=== PATIENT | female | born 1970 | race Caucasian/White ===

== ENCOUNTER 2025-06-07 09:22 | Outpatient (AMB) | payer BC, SELFPAY ==
--- OUTSIDE RECORDS SUMMARY | 2021-07-16 06:44 | XMS_ITS | Continuity of Care Document ---
Author Organization [facility] Address [address] [place] [address] Phone Care Team Providers Care Serology Technician Name Role Phone Cheryl BARAHONA, Vega Unavailable Unavailable Allergies, Adverse Reactions, Alerts Substance Reaction Status Criticality No Known Allergies Active No Inform ation Medications Medication Instructions Dosage Effective Dates (start - stop) Status Comments WARFARIN SODIUM (unknown strength) Not Available - Active ZOLPIMIST (unknown strength) Not Available - Active LEVOTHYROXINE SODIUM (unknown strength) Not Available - Active Procedures Procedure Date Office/Oupt E&M New Pt 45 Mins Duplex Scan-extrem Veins; Uni/ Advance Directives Directive Yes / No Effective Date File Name No Information Encounters Encounter Description Practice Location Reason(s) For Visit Diagnoses Date Provider Providers Copied on Encounter [facility], [address], [place], [place], [id number], [place] tel:[phone] [facility] No Information Cheryl Ferrari. [address], [facility] [address], [place], [address], [place]. tel:[phone] Referring Provider: Aleida Beck, [address], [place], [address]. tel:[phone] Office/Oupt E&M New Pt 45 Mins [facility], [address] [address], [place], [place], [id number], tel:[phone] - [facility] Body mass index (BMI) 31.0-31.9, adultVenous insufficiency (chronic) (peripheral)Sp ider Veins - (Telangiectasi a) Sep- 1 Neetu Ortiz. [address], [place], [facility], . tel:[phone] Referring Provider: Aleida Beck, [address] [place] [address], [facility]. tel:[phone] [facility], [address] [place] [address], [id number], tel:[phone] [facility] Encntr for f/u exam aft trtmt for cond oth than malig neoplmVaricose veins of left lower extremities with pain Jun- 1 Neetu Ortiz. [address], [place], [place], [facility], . tel:[phone] Referring Provider: Aleida Beck, [address] [place] [address], [facility]. tel:[phone] Family History Family Member Type Diagnosis Age At Onset No Information Payers Payer name Insurance type Covered republican ID Authoriza tion(s) No Information Social History Type Description Quantity Date Captured Comments Sex Female Smoking Status No Information Chief Complaint And Reason For Visit No Information Reason For Referral Reason For Referral No Information Plan Of Treatment Date Type Action Status Goal Diet education completed Referral Ordered: Duplex Scan-extrem Veins; Uni/ Left leg ordered History Of Present Illness Encounter Date Complaint History Of Prese nt Illness No Information Functional Status Date Functional Assessmen t No Information Instructions Date Instruction Additional Infor mation Giving Encouragement to Exercise Related to Body mass index [BMI] 31.0-31.9, adult Diet education Related to Body mass index [BMI] 31.0-31.9, adult Patient education booklet given Related to Venous Insufficiency (Chronic / Peripheral) Pre and post instruc tions reviewed and provided Related to Venous Insufficiency (Chronic / Peripheral) Assessments Type Assessment Date No Information Patient Care Teams Name Effective Dates (start - stop) Status Members No Information
--- NOTE | 2025-06-07 09:24 | MHC.OFFVIS ---
Vital Signs 06/07/25 09:29 Height 5 ft 5 in Weight 204 lb 9.423 oz BMI 34.0 BP 130/80 Blood Pressure Location Rt brachial Position Sitting Pulse 79 Pulse Source Pulse Oximeter Pulse Oximetry (%) 99 Oxygen Delivery Method Room Air Intake Visit Reasons: Arthralgia Intake Note: Patient presents today for Arthralgia follow up. Accompanied by: Self / Same As Patient Allergies amoxicillin Allergy (Mild, Verified 06/07/25 09:21) Hives azithromycin Allergy (Mild, Verified 06/07/25 09:33) stomach pain erythromycin base Allergy (Mild, Verified 06/07/25 09:33) stomach pain Penicillins Allergy (Mild, Verified 06/07/25 09:33) Rash sulfalene Allergy (Mild, Verified 06/07/25 09:33) stomach pain vancomycin Allergy (Mild, Verified 06/07/25 09:33) Hives almonds Adverse Reaction (Severe, Uncoded 06/07/25 09:21) throat swelling HPI HPI Arthralgia: Details: Right ankle pain started yesterday. Denies incident leading to ankle pain. This past Wednesday and Wednesday she hiked for a few miles with uneven ground. She was [place] at [place] near [facility]. This morning she continues to have ankle pain but it is tolerable. She has not self medicated. She Stretched her ankles in the morning. Denies fevers, dyspnea, pleurisy, oral ulcers, rash, active Raynaud's phenomenon, urinary symptoms, or joint swelling. Denies any new issues in regards to her heart or heart valves. She we will be following up with marble machine tender for follow up echocardiogram. 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 Psoriasis De Quervain's tenosynovitis, right Raynauds syndrome Plantar fasciitis Localized, primary osteoarthritis of ankle or foot FANY positive Disorder of connective tissue Arthralgia of knee Arthralgia of ankle or foot, left Surgical History History of open heart surgery H/O thyroidectomy History of oral surgery H/O abdominal surgery Physical Exam Vital Signs: Last Vital Signs Pulse 79 06/07/25 09:29 BP 130/80 09/04/25 09:29 Pulse Ox 99 06/07/25 09:29 Oxygen Delivery Method Room Air 06/07/25 09:29 BMI result Body Mass Index 34.0 Const Other: General: Comfortable CVS: RRR Respiratory: clear to auscultation bilaterally. Good respiratory effort Skin: No lesions seen, no discoloration of fingertips or ulcers. MSK: She has tenderness along distal aspect of medial malleolus at the junction of the tibial talus joint. Synovitis. Normal range of motion of upper extremities and lower extremities. Assessment & Plan Assessment & Plan (1) Right ankle pain: Comment: Acute onset right ankle pain. Suspect ankle strain is contributing in setting of recent increase activity with hiking. We discussed conservative management. X-ray from 2019 of right ankle was normal. Code(s): M25.571 - Pain in right ankle and joints of right foot Category: Medical Qualifiers: Chronicity: acute Qualified Code(s): M25.571 - Pain in right ankle and joints of right foot Plan: Ice ankle twice a day Start diclofenac gel 1% applied to affected area q.i.d. She will resume exercises learned from physical therapy tomorrow If after above she continues to have pain in 2 weeks, she will call office for next steps. I will then order x-ray, send brace prescription and start physical therapy Return to clinic in 1 year or sooner if needed (2) Disorder of connective tissue: Comment: At this time she does not have any signs or symptoms suggestive of connective tissue disease. Rheumatology history: She has antibodies without clinical disease: Positive FANY, REED FIXER antibody and lupus anticoagulant (on warfarin at this time of testing). She had an episode of inflammatory arthritis February 2020 affecting left knee and right ankle treated by Dr. Rodriguez with Depo-Medrol IM. She has not had any recurrence. She had aortic valve prolapse status post replacement August 2020 with nonspecific findings without vegetation or thrombi on pathology. Code(s): M35.9 - Systemic involvement of connective tissue, unspecified Category: Medical Plan: Monitor clinically Return to clinic in 1 year or sooner if needed Coding Level of Care Code Est Pt Level 4 (13091) Diagnoses Acute right ankle pain M25.571 Chronicity: acute Disorder of connective tissue M35.9
[2025-06-07 09:29] VITALS: BP 130/80; PULSE 79; O2SAT 99; BMI 34.0
--- OUTSIDE RECORDS SUMMARY | 2025-06-07 10:04 | XMS_ITS | Encounter Summary ---
Author Organization [facility] Address [address] [place] [address] Phone Care Team Providers Care Chiropractic Physician Name Role Phone Aleida Cotter OPTICAL TECHNICIAN Primary Care Provider + Encounter Details Date Type Department Care Team (Latest Contact Info) Description 04/25/2024 Transcribe Orders Virtual Department [address] [place] [address] Darcy Vilchis PA [address] [place] [address] Dysphagia, unspecified type (Primary Dx) Social History Tobacco Use Types Packs/Day Years Used Date Smoking Tobacco: Never Smokeless Tobacco: Never Alcohol Use Standard Drinks/Week Comments Yes 1 (1 standard drink = 0.6 oz pur e alcohol) Education Answer Date Recorded Are you interested in more education? Not on hussein e 01/29/2023 Are you concerned about learning? Not on file 01/29/2023 No 01/29/2023 No 01/29/2023 Digital Access Answer Date Recorded No 03/02/2023 No 03/02/2023 Reliable internet access at home? Not on file 03/02/2023 Device with a working camera? Not on file Intimate Partner Violence Answer Date R ecorded Are you denied basic needs s uch as food, clothing, or medical care? No 12/25/2022 In the past 12 months have y ou been in a relationship with a person who hurts, threatens, or tries to control you? No 12/25/2022 Are you denied basic needs s uch as food, clothing, or medical care? No 12/25/2022 In the past 12 months have y ou been in a relationship with a person who hurts, threatens, or tries to control you? No 12/25/2022 Comments No Sex and Gender Information Value Date Recorded Sex Assigned at Not on file Legal Sex Female 3:50 PM EDT Gender Identity Not on file Sexual Orientation Not on file documented as of this encounter Plan of Treatment Not on file documented as of this encounter Results * FL BARIUM SWALLOW ESOPHAGRAM DOUBLE CONTRAST (05/09/2024 9:40 AM EDT) Anatomical Region Laterality Modality Chest Radio Fluoroscop y 05/09/2024 12:4 0 PM EDT Impressions 05/09/2024 1:30 PM EDT Barium swallow esophagram is within normal limits. FLUOROSCOPY TIME: 1 minute 30 seconds NUMBER OF IMAGES: 300 ATTESTATION: Daniela Molina as teaching physician, have reviewed the images for this case and if necessary edited the report originally created by Jm Todd. Narrative 05/09/2024 1:30 PM EDT FL BARIUM SWALLOW ESOPHAGRAM DOUBLE CONTRAST HISTORY: Dysphagia. COMPARISON: XR chest 11/11/2022. OPERATORS: Jm Todd SUPERVISING PHYSICIAN: Daniela Amaral TECHNIQUE: Double contrast barium swallow examination was performed with Sodium Carbonate and Barium. FINDINGS: SWALLOW: No corbin aspiration demonstrated. ESOPHAGUS: Motility: No significant esophageal dysmotility. Mucosa: No gross mass, ulceration or fixed stricture demonstrated fluoroscopically. Distensibility: Normal. GASTROESOPHAGEAL JUNCTION: No evidence of a hiatal hernia despite prone Valsalva maneuver. GASTROESOPHAGEAL REFLUX: None observed. TABLET: A 13 mm barium tablet passed readily into the stomach. Visualized portion of the stomach and proximal small bowel are unremarkable. Procedure Note Daniela Amaral MD - 05/09/2024 FL BARIUM SWALLOW ESOPHAGRAM DOUBLE CONTRAST HISTORY: Dysphagia. COMPARISON: XR chest 11/11/2022. OPERATORS: Jm Todd SUPERVISING PHYSICIAN: Daniela Amaral TECHNIQUE: Double contrast barium swallow examination was performed withSodium Carbonate and Barium. FINDINGS: SWALLOW: No corbin aspiration demonstrated. ESOPHAGUS: Motility: No significant esophageal dysmotility. Mucosa: No gross mass, ulceration or fixed stricture demonstratedfluoroscopically. Distensibility: Normal. GASTROESOPHAGEAL JUNCTION: No evidence of a hiatal hernia despite proneValsalva maneuver. GASTROESOPHAGEAL REFLUX: None observed. TABLET: A 13 mm barium tablet passed readily into the stomach. Visualized portion of the stomach and proximal small bowel areunremarkable. IMPRESSION: Barium swallow esophagram is within normal limits. FLUOROSCOPY TIME: 1 minute 30 seconds NUMBER OF IMAGES: 300 ATTESTATION: I, Daniela Amaral as teaching physician, have reviewed theimages for this case and if necessary edited the report originally createdby Jm Todd. Darcy ORTEZ [facility] Final Resul t documented in this encounter Visit Diagnoses Diagnosis Dysphagia, unspecified type- Primary Dysphagia, unspecified type documented in this encounter Care Teams Chiropractic Physician Relationship Specialty Start Date End Date Aleida Cotter NP [address] [place] [address] PCP - General Family Medicine 03/26/22 documented as of this encounter Additional Source Comments The information contained in this document represents components of the legal health record. It is not the complete legal health record.[facility]
--- OUTSIDE RECORDS SUMMARY | 2025-06-07 10:04 | XMS_ITS | Encounter Summary ---
Author Organization [facility] Address [address] [facility] [address] [facility] [address] [place] [address] Phone Care Team Providers Care Economic Development Coordinator Name Role Phone Aleida Cotter NP Primary Care Provider + Encounter Details Date Type Department Care Team (Latest Contact Info) Description 02/08/2024 Transcribe Orders Virtual Department [address] [place] [address] Te Rendon MD [address] [facility] [place] [address] Solitary pulmonary nodule (Primary Dx) Social History Tobacco Use Types [...] on file documented as of this encounter Visit Diagnoses Diagnosis Solitary pulmonary nodule- Primary documented in this encounter Care Teams Economic Development Coordinator Relationship Specialty Start Date End Date Aleida Cotter NP [address] [place] [address] PCP - General Family Medicine 03/26/22 documented as of this encounter Additional Source Comments The information contained in this document represents components of the legal health record. It is not the complete legal health record.[facility]
--- OUTSIDE RECORDS SUMMARY | 2025-06-07 10:04 | XMS_ITS | Encounter Summary ---
Author Organization [facility] Address [address] [place] [address] Phone Care Team Providers Care Prefinish Operator Name Role Phone Aleida Cotter RIP SAW OPERATOR Primary Care Provider + Reason for Referral * MRI/CAT Scan - Closed Specialty Diagnoses / Procedures Referred By Cady t Referred To Contact Radiology Diagnoses Lower abdominal pain Procedures CT Abdomen/Pelvis Juanita Randhawa NP 10 [place] [address] Phone: tel: fax: Referral ID Status Reason Start Date Expiration Date Visits Re quested Visits Authorized [id number] Closed 01/05/2024 01/04/2025 1 1 Encounter Details Date Type Department Care Team (Latest Contact Info) Description 01/05/2024 Transcribe Orders Virtual Department [address] [place] [address] Juanita Randhawa NP [address] [place] [phone] Lower abdominal pain (Primary Dx) Social History Tobacco Use Types [...] documented as of this encounter Results * CT ABDOMEN/PELVIS WITHOUT CONTRAST (03/02/2024 5:16 PM EDT) Anatomical Region Laterality Modality Abdomen, Pelvis Computed Tomogra phy 03/04/2024 5:11 AM EDT Impressions 03/04/2024 7:40 AM EDT Impression: No abdominopelvic acute inflammation. Large right colonic stool volume with findings of slow small bowel transit may reflect constipation. Narrative 03/04/2024 7:[address] ABDOMEN/PELVIS WITHOUT CONTRAST Referring clinician's provided indication for this examination in Epic: Outside Radiology Order; lower abdominal pain TECHNIQUE: Multidetector-row CT of the abdomen and pelvis was performed without intravenous contrast using tailored dose modulation techniques. Images were reconstructed in the axial, coronal, and sagittal planes. COMPARISON: None ABSENCE OF INTRAVENOUS CONTRAST DECREASES SENSITIVITY FOR DETECTION OF FOCAL LESIONS AND VASCULAR PATHOLOGY. FINDINGS: Lower Chest: Aortic valve prosthesis. Liver: No suspicious focal lesion. Segment 5 cyst. Biliary: No bile duct dilation. Noninflamed gallbladder. Spleen: No splenomegaly or suspicious focal lesion. Pancreas: No mass or main duct dilation. Adrenal Glands: No nodule. Kidneys/Ureters: No urolithiasis, hydronephrosis, or solid renal mass. Pelvic Organs/Bladder: Age-appropriate. Bowel: No abnormal wall thickening or distension. Noninflamed colonic diverticula. Noninflamed appendix. Large stool volume in the right colon with fecalization of distal small bowel contents, suggestive of slow transit. Colorectal stool volume elsewhere within normal limits. Peritoneum/Retroperitoneum: No free fluid, free air, or mass. Lymph Nodes: No abnormally enlarged lymph nodes. Vessels: No aortic aneurysm. Mild atherosclerotic calcifications. Bones/Soft Tissues: No destructive osseous lesion. Punctate bone islands. Procedure Note Isaias Cotter MD - 03/04/2024 CT ABDOMEN/PELVIS WITHOUT CONTRAST Referring clinician's provided indication for this examination in Epic:Outside Radiology Order; lower abdominal pain TECHNIQUE: Multidetector-row CT of the abdomen and pelvis was performedwithout intravenous contrast using tailored dose modulation techniques.Images were reconstructed in the axial, coronal, and sagittal planes. COMPARISON: None ABSENCE OF INTRAVENOUS CONTRAST DECREASES SENSITIVITY FOR DETECTION OFFOCAL LESIONS AND VASCULAR PATHOLOGY. FINDINGS: Lower Chest: Aortic valve prosthesis. Liver: No suspicious focal lesion. Segment 5 cyst. Biliary: No bile duct dilation. Noninflamed gallbladder. Spleen: No splenomegaly or suspicious focal lesion. Pancreas: No mass or main duct dilation. Adrenal Glands: No nodule. Kidneys/Ureters: No urolithiasis, hydronephrosis, or solid renal mass. Pelvic Organs/Bladder: Age-appropriate. Bowel: No abnormal wall thickening or distension. Noninflamed colonicdiverticula. Noninflamed appendix. Large stool volume in the right colonwith fecalization of distal small bowel contents, suggestive of slowtransit. Colorectal stool volume elsewhere within normal limits. Peritoneum/Retroperitoneum: No free fluid, free air, or mass. Lymph Nodes: No abnormally enlarged lymph nodes. Vessels: No aortic aneurysm. Mild atherosclerotic calcifications. Bones/Soft Tissues: No destructive osseous lesion. Punctate boneislands. IMPRESSION: Impression: No abdominopelvic acute inflammation. Large right colonic stool volume with findings of slow small bowel transitmay reflect constipation. Juanita Randhawa NP IMG CT ABD/PELVIS Final R esult documented in this encounter Visit Diagnoses Diagnosis Lower abdominal pain- Primary Abdominal pain, other specified site Lower abdominal pain Abdominal pain, other specified site documented in this encounter Care Teams Prefinish Operator Relationship Specialty Start Date End Date Aleida Cotter NP [address] [place] [address] PCP - General Family Medicine 03/26/22 documented as of this encounter Additional Source Comments The information contained in this document represents components of the legal health record. It is not the complete legal health record.[facility]
--- OUTSIDE RECORDS SUMMARY | 2025-06-07 10:04 | XMS_ITS | Encounter Summary ---
Author Organization [facility] Address [address] [facility] [address] [place] [address] Phone Care Team Providers Care Application Architect Name Role Phone Aleida Cotter COMMERCIAL PEST CONTROL REPRESENTATIVE Primary Care Provider + Encounter Details Date Type Department Care Team (Latest Contact Info) Description 12/15/2023 Transcribe Orders [facility] [address] [address] Juanita Randhawa NP 10 [place] [address] Lower abdominal pain (Primary Dx) Social History [...] documented as of this encounter Results * C-Reactive Protein (12/15/2023 9:24 AM EDT) C REACTIVE PROTEIN <3.0 0.0 - 4.0 mg/L [facility] Blood 12/15/2023 9:24 AM EDT 12/15/2023 9:33 AM EDT us Juanita Randhawa NP LAB BLOOD ORDERABLES Daniela felix Result Performing Organization Address City/State/[facility] Co de Phone Number [address] [address] * Comprehensive metabolic panel (12/15/2023 9:24 AM EDT) SODIUM 139 133 - 146 mmol/L [facility] POTASSIUM 4.4 3.3 - 5.1 mmol/L [facility] CHLORIDE 102 96 - 108 mmol/L [facility] CO2 29 21 - 35 mmol/L [facility] BUN 14 6 - 19 mg/dL [facility] CREATININE 0.80 0.5 - 1.5 mg/dL [facility] GLUCOSE 83 70 - 99 mg/dL [facility] ALBUMIN 4.7 3.9 - 4.8 g/dL [facility] TOTAL PROTEIN 7.6 6.5 - 8.0 g/dL [facility] CALCIUM 9.0 8.4 - 10.3 mg/dL [facility] ALKALINE PHOSPHATASE 68 39 - 117 U/L [facility] TOTAL BILIRUBIN 0.4 0.0 - 1.2 mg/dL [facility] AST 32 0 - 37 U/L [facility] ALT 20 0 - 40 U/L [facility] GLOBULIN 2.9 1 - 4.8 g/dL [facility] EGFR 88 >59 mL/min/1.7 3m2 [facility] Comment:Estimated glomerular filtration rate calculated using the CKD-EPI refit equation. ANION GAP 12 10 - 20 mmol/L [facility] Blood 12/15/2023 9:24 AM EDT 12/15/2023 9:33 AM EDT us Juanita Randhawa NP LAB BLOOD ORDERABLES Daniela l Result [address] [address] * CBC (12/15/2023 9:24 AM EDT) WBC 4.36 4.00 - 11.00 K/uL [facility] RBC 4.93 3.72 - 5.30 M/uL [facility] HGB 14.5 10.6 - 15.5 g/dL [facility] HCT 44.0 32.0 - 45.0 % [facility] PLT 242 140 - 430 K/uL [facility] MCV 89.2 78.0 - 97.0 fL [facility] MCH 29.4 25.0 - 33.0 pg [facility] MCHC 33.0 32.0 - 36.0 g/dL [facility] RDW 12.3 11.0 - 16.0 % [facility] MPV 9.4 8.4 - 12.8 fl [facility] Blood 12/15/2023 9:24 AM EDT 12/15/2023 9:33 AM EDT us Juanita Randhawa NP LAB BLOOD ORDERABLES Daniela l Result Performing Organization Address City/[facility]/ZIP Co de Phone Number [address] [address] documented in this encounter Visit Diagnoses Diagnosis Lower abdominal pain- Primary Abdominal pain, other specified site documented in this encounter Care Teams Application Architect Relationship Specialty Start Date End Date Aleida Cotter NP [address] [place] [address] PCP - General Family Medicine 03/26/22 documented as of this encounter Additional Source Comments The information contained in this document represents components of the legal health record. It is not the complete legal health record.[facility]
--- OUTSIDE RECORDS SUMMARY | 2025-06-07 10:04 | XMS_ITS | Encounter Summary ---
Author Organization [facility] Address [address] [facility] [address] [place] [phone] Phone Care Team Providers Care Rand Butter Name Role Phone Aleida Cotter LOSS CONTROL TECHNICIAN Primary Care Provider + Encounter Details Date Type Department Care Team (Late st Contact Info) Description 01/05/2024 Procedure Pass [facility], Ct Scan - [address] [address] Social History Tobacco Use Types Packs/Day Years [...] documented as of this encounter Visit Diagnoses Not on filedocumented in this encounter Care Teams Rand Butter Relationship Specialty Start Date End Date Aleida Cotter NP [address] [place] [address] PCP - General Family Medicine 03/26/22 documented as of this encounter Additional Source Comments The information contained in this document represents components of the legal health record. It is not the complete legal health record.[facility]
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
--- OUTSIDE RECORDS SUMMARY | 2025-06-07 10:04 | XMS_ITS | Encounter Summary ---
Author Organization [facility] Address [address] [id number] Phone Care Team Providers Care Rn Baby Name Role Phone Aleida Cotter CARPET MECHANIC Primary Care Provider + Encounter Details Date Type Department Care Team (Late st Contact Info) Description 12/25/2022 Procedure Pass [facility] Endoscopy Admitting Dept Virtual Department [address] [place] [address] Social History Tobacco Use Types Packs/Day Years Used Date Smoking Tobacco: Never Smokeless Tobacco: Never Alcohol Use Standard Drinks/Week Comments Yes 1 (1 standard drink = 0.6 oz pur e alcohol) Intimate Partner Violence Answer Date R ecorded [...] on filedocumented in this encounter Care Teams Rn Baby Relationship Specialty Start Date End Date Aleida Cotter NP [address] [place] [id number] PCP - General Family Medicine 03/26/22 documented as of this encounter Additional Source Comments The information contained in this document represents components of the legal health record. It is not the complete legal health record.[facility]
--- OUTSIDE RECORDS SUMMARY | 2025-06-07 10:04 | XMS_ITS | Clinical Summary ---
Author Organization [facility] Address [address] [place] [address] Care Team Providers Care Insurance Account Specialist Name Role Phone Aleida Cotter PATTI Primary Care Provider [phone] Allergies Active Allergy Reactions Criticality Noted Date Comments [place] 10/05/2015 Animal Dander Itching,Photosensiti vit y Low 07/18/2015 Erythromycin Nausea Only Medium 07/18/2015 Penicillins Hives Medium 07/18/2015 Sesame Seeds Other (See Comments) Low 07/18/2015 Patient does not know reaction, just that she has an allergy to sesame Shellfish Hives,Swelling High 07/18/2015 Sulfa Antibiotics Hives Medium 07/18/2015 Vancomycin Hives Medium 07/18/2015 Wheat Anaphylaxis,Shortnes s Of Breath,Swelling High 07/18/2015 Medications Medication Sig Dispensed Refills Start Date End Date Status zolpidem (AMBIEN) 5 MG tablet Take 2 tablets (10 mg total) by mouth every night at bedtime. 0 Active MULTIPLE VITAMIN PO Take 1 tablet by mouth daily. 0 Active calcium carbonate (OS-KRANTHI) 1250 (500 Ca) MG tablet Take 2 tablets (2,500 mg total) by mouth daily. 0 Active Wheat Dextrin (BENEFIBER DRINK MIX PO) Take by mouth daily. 0 Active levothyroxine (SYNTHROID, LEVOXYL) tablet 137 mcg Take 112 mcg by mouth every morning on an empty stomach. 0 Active vitamin C (ASCORBIC ACID) 500 MG tablet Take 1 tablet (500 mg total) by mouth daily. 0 Active warfarin (COUMADIN) 5 MG tablet TAKE 1 TABLET BY MOUTH DAILY DIRECTED BY THE COUMADIN CLINIC 0 04/11/2023 Active rosuvastatin (CRESTOR) tablet 10 mg Take 1 tablet (10 mg total) by mouth daily. 0 04/26/2023 Active Myrbetriq 50 MG TB24 0 05/11/2023 Acti ve levothyroxine (SYNTHROID) tablet 112 mcg Take 1 tablet (112 mcg total) by mouth daily. 0 04/26/2023 Active Active Problems Problem Noted Date Diagnosed Date Ascending aorta dilatation 04/28/2018 NSVT (nonsustained ventricular tachycardia) 02/01 Obesity (BMI 30-39.9) 02/17/2018 Palpitations 02/17/2018 Dyspnea on exertion 02/17/2018 Degenerative lumbar disc 10/05/2015 Chronic low back pain 09/24/2015 Spondylarthrosis 09/24/2015 Adenomatous colon polyp 07/18/2015 Family History Medical History Relation Name Comments Diabetes Father Diverticulitis Father Hypertension Father Diverticulitis Mother Lupus Mother Relation Name Status Comments Father Mother Social History Tobacco Use Types Packs/Day Years Used Date Smoking Tobacco: Never Smokeless Tobacco: Never Tobacco Cessation:Counseling Given: Not Answered Alcohol Use Standard Drinks/Week Comments Yes 1 (1 standard drink = 0.6 oz pur e alcohol) Sex and Gender Information Value Date Recorded Sex Assigned at Female 07/17/2023 9:04 AM EDT Gender Identity Not on file Sexual Orientation Not on file Job Start Date Occupation Industry Not on file Not on file Not on file Last Filed Vital Signs Vital Sign Reading Time Taken Comments Blood Pressure 122/86 06/01/2023 2:04 PM EDT Pulse 80 06/01/2023 2:04 PM EDT Temperature 36.7 C (98 F) 09/29/2022 8:27 AM EST Respiratory Rate 16 12/29/2018 10:04 AM EDT Oxygen Saturation 97% 07/18/2015 1:40 PM EDT Inhaled Oxygen Concentration - - Weight 85.7 kg (189 lb) 06/01/2023 2:04 PM EDT Height 165.1 cm (5' 5 ) 06/01/2023 2:04 PM EDT Body Mass Index 31.45 06/01/2023 2:04 PM EDT Plan of Treatment Health Maintenance Due Date Last Done Comments Hepatitis B Vaccines (1 of 3 - 3-dose series) 1969 Hepatitis C Screening 1969 Depression Screening 1981 BMI Counseling 1987 Preventative Health Evaluation 1987 DTap / Tdap / Td (1 - Tdap) 1988 Cervical Cancer Screening (Pap Smear) 1990 Breast Cancer Screening (Mammogram) 2019 COVID-19 Vaccine ( season) 2024 09/29/2022, 04/28/2022, 08/31/2021, Additional history exists Influenza Vaccine (#1) 2025 3, 07/23/2022, 08/31/2021 Colon Cancer Screening (Colonoscopy) 07/18/2025 07/18/2015 Pneumococcal Vaccine Aged Out 08/26/2020 No long er eligible based on patient's age to complete this topic Shingrix-Zoster Vaccine Completed 11/18/2021, 04/18 RSV Ped < 20 months Aged Out No longe r eligible based on patient's age to complete this topic Care Teams Insurance Account Specialist Relationship Specialty Start Date End Date Aleida Cotter, CLIENT [employer] [address] [facility] [place] [address] PCP - General Family Medicine 07/17/23
--- OUTSIDE RECORDS SUMMARY | 2025-06-07 10:04 | XMS_ITS | Clinical Summary ---
Author Organization [facility] Address [address] [place] [address] Care Team Providers Care Grant Coordinator Name Role Phone Aleida Cotter PATTI Primary Care Provider Allergies Active Allergy Reactions Criticality Noted Date Comments Erythromycin GI Bleeding,GI Intolerance/Nausea/Vo miting,Nausea Only High 07/18/2015 Upset stomach Nuts Anaphylaxis High 08/29/2020 Penicillins Rash/Dermatitis Low 08/29/2020 Sesame Seeds GI Intolerance/Nausea/Vo miting Low 08/29/2020 Shellfish Allergy Rash/Dermatitis Low 08/29/2020 Soy Allergy (Obsolete) GI Intolerance/Nausea/Vo miting Low 08/29/2020 Sulfa Antibiotics Hives Medium 07/18/2015 Triple Dye Anaphylaxis High 08/29/2020 allergic to contrast dye Vancomycin GI Intolerance/Nausea/Vo miting Low 08/29/2020 Wheat GI Intolerance/Nausea/Vo miting Low 08/29/2020 Medications EPINEPHrine (EPIPEN 2-JOSE MIGUEL) 0.3 mg/0.3 mL IJ auto-injection Inject 0.3 mg into the shoulder, thigh, or buttocks once as needed for allergic reaction or anaphylaxis (may repeat if necessary). 08/29/20 20 Active multivitamin Tab tablet Take 1 tablet by mouth daily. Active zolpidem (AMBIEN) 10 MG tablet Take 10 mg by mouth nightly as needed for sleep. 08/29/20 Active ascorbic acid (ascorbic acid) 500 MG tablet Take 500 mg by mouth daily. 08/30/20 Active potassium chloride (KLOR-CON) 10 MEQ tablet Take 10 mEq by mouth daily. 08/30/20 Active amiODARONE (PACERONE) 200 MG tablet Take 200 mg by mouth 2 (two) times a day. post cardiac surgery for a month 08/30/20 Active metoPROLOL TARTRATE (LOPRESSOR) 25 MG tablet Take 25 mg by mouth 2 (two) times a day. 08/30/20 Active aspirin 81 MG chewable tablet Chew 81 mg daily. 0 20 Active furosemide (LASIX) 40 MG tablet Take 40 mg by mouth daily. 08/30/20 Active acetaminophen (TYLENOL) 325 MG tablet Take 975 mg by mouth 3 times daily (every 8 hours) as needed for mild pain or moderate pain. Active Calcium Carb-Cholecalcifer ol (Calcium 600 + D) 600-5 MG-MCG Tab Take by mouth. Activ e Ascorbic Acid (vitamin C) 1000 MG tablet Take by mouth. Activ e Sennosides-Docusat e Sodium (COLACE 2-IN-1 PO) Active calcium carbonate (OS-KRANTHI) 1250 (500 Ca) MG tablet Take 2,500 mg by mouth. Active cyanocobalamin (VITAMIN B-12) 500 MCG tablet Take by mouth. Acti ve docusate sodium (Colace) 100 MG capsule Take by mouth. Activ e levoFLOXacin (LEVAQUIN) 500 MG tablet TAKE 1 TABLET EVERY 24 HOURS BY ORAL ROUTE DIRECTED FOR 7 DAYS. Active levothyroxine (SYNTHROID, LEVOTHROID) 112 MCG tablet Take 112 mcg by mouth. Active trospium (SANCTURA XR) 60 MG extended release capsule Take by mouth. Active warfarin (COUMADIN) 1 MG tablet TAKE 1 TABLET BY MOUTH ONCE DAILY DIRECTED BY COUMADIN CLINIC 09/19/20 Active warfarin (COUMADIN) 5 MG tablet TAKE 1 TABLET BY MOUTH ONCE DAILY DIRECTED BY COUMADIN CLINIC 09/19/20 24 Active rosuvastatin (CRESTOR) 10 MG tablet Take 10 mg by mouth. Active zolpidem (AMBIEN) 10 MG tablet Take 10 mg by mouth nightly. Active famotidine (PEPCID) 40 MG tablet Take 40 mg by mouth. Active terconazole (TERAZOL 7) 0.4 % vaginal cream INSERT 1 APPLICATORFUL VAGINALLY AT BEDTIME FOR 7 DAYS Active rimegepant (Nurtec) 75 mg disintegrating tablet TAKE 1 TABLET VIA SUBLINGUAL ROUTE AT ONSET OF MIGRAINE. MAX DOSE 75 MG/24 HOURS Active Multiple Vitamins-Minerals (One Daily Multivitamin Women) Tab Take by mouth. Acti ve Fluocinolone Acetonide 0.01 % Oil INSTILL OTIC APPLY 4 DROPS TO EACH EAR 2 TIMES A WEEK AND NEEDED Active levocetirizine (Xyzal Allergy 24HR) 5 MG tablet Ac tive mirabegron (MYRBETRIQ) 50 mg ER tablet Take 50 mg by mouth. Active triamcinolone (NASACORT AQ) 55 MCG/ACT Aerosol nasal sprayIndications:N on-seasonal allergic rhinitis due to other allergic trigger 1-2 sprays per nostril daily 3 each 3 03/07/20 25 Active Encounters Date Type Department Care Team Description 03/07/2025 4:30 PM EDT Office Visit [facility] of Allergy [address] [place] [address] Luisa Rosas MD Non-seasonal allergic rhinitis due to other allergic trigger (Primary Dx); Allergic conjunctivitis, bilateral; Gastroesophageal reflux disease, unspecified whether esophagitis present from Last 3 Months Social History Tobacco Use Types Packs/Day Years Used Date Smoking Tobacco: Never Assessed Tobacco Cessation:Counseling Given: Not Answered Alcohol Use Standard Drinks/Week Comments Yes 0 (1 standard drink = 0.6 oz pur e alcohol) 1 or 2 a week Comments Unknown Sex and Gender Information Value Date Recorded Sex Assigned at Not on file Legal Sex Female 11:52 AM EDT Gender Identity Not on file Sexual Orientation Not on file Last Filed Vital Signs Vital Sign Reading Time Taken Comments Blood Pressure 130/74 12/29/2023 2:45 PM EDT Pulse 54 09/16/2020 11:06 AM EST Temperature 36.6 C (97.8 F) 09/16/2020 11:06 AM EST Respiratory Rate 14 09/16/2020 11:06 AM EST Oxygen Saturation 98% 09/16/2020 11:06 AM EST Inhaled Oxygen Concentration - - Weight 86.2 kg (190 lb) 12/29/2023 2:45 PM EDT Height 165.1 cm (5' 5 ) 03/07/2025 4:16 PM EDT Body Mass Index 31.62 12/29/2023 2:45 PM EDT Plan of Treatment Health Maintenance Due Date Last Done Comments Hepatitis C Virus Screening 1969 HIV Screening 1982 DTaP/Tdap/Td Vaccines (1 - Tdap) 1988 Hepatitis B Vaccines (1 of 3 - 19+ 3-dose series) 1988 Pap Smear (Ages 21-65) 1990 Mammogram 2009 Colonoscopy 2014 Pneumococcal Vaccines 50+ (1 of 1 - PCV) 2019 Zoster (Shingles) Vaccine (1 of 2) 2019 Influenza Vaccine 05/04/2025 08/29/2023, , 08/31/2021, Additional history exists COVID-19 Vaccine (2024-2 6 season) 2025 12/05/2023, 09/29/2022, 04/28/2022, Additional history exists Insurance [employer] PPO Care Teams Grant Coordinator Relationship Specialty Start Date End Date Aleida Cotter APRN [address] [place] [address] PCP - General Family Medicine 12/29/23
--- OUTSIDE RECORDS SUMMARY | 2025-06-07 10:04 | XMS_ITS ---
Author Name [facility] Organization Unknown Results Test Name/Text Value Interpretation Date Range Source Vit B12 SerPl-mCnc >2000 Above high normal 06/04/2025 20 0 - 1100 [facility] Cholest/HDLc SerPl 2.1 (calc) Normal 06/04/2025 - 5 [facility] Trigl SerPl-mCnc 74.0 mg/dL Normal 06/04/2025 - 150 Q [facility] NonHDLc SerPl-mCnc 77.0 mg/dL (calc) Normal 06/04/2025 - 130 [facility] Cholest SerPl-mCnc 147.0 mg/dL Normal 06/04/2025 - 200 [facility] LDLc SerPl Calc-mCnc 62.0 mg/dL (calc) Normal 06/04/2025 [facility] HDLc SerPl-mCnc 70.0 mg/dL Normal 06/04/2025 - QU EST Platelet # Bld Auto 286.0 Thousand/uL Normal 06/04/2025 140 - 400 [facility] MCHC RBC Auto-EntMCnc 31.8 g/dL Below low normal 06/04/2025 32 - 36 [facility] Hct VFr Bld Auto 47.8 % Above high normal 06/04/2025 35 - 45 [facility] Eosinophil NFr Bld Auto 4.0 % Normal 06/04/2025 [facility] Neutrophils # Bld Auto 3265.0 cells/uL Normal 06/04/2025 1500 - 7800 [facility] WBC # Bld Auto 5.0 Thousand/uL Normal 06/04/2025 3.8 - 10 .8 [facility] RBC # Bld Auto 5.04 Million/uL Normal 06/04/2025 3.8 - 5. 1 [facility] Lymphocytes # Bld Auto 1075.0 cells/uL Normal 06/04/2025 850 - 3900 [facility] Lymphocytes NFr Bld Auto 21.5 % Normal 06/04/2025 [facility] PMV Bld Angel-Trinh 9.1 fL Normal 06/04/2025 7.5 - 12.5 [facility] MCV RBC Auto 94.8 fL Normal 06/04/2025 80 - 100 [facility] Monocytes # Bld Auto 390.0 cells/uL Normal 06/04/2025 200 - 950 [facility] MCH RBC Qn Auto 30.2 pg Normal 06/04/2025 27 - [address] [facility] Basophils NFr Bld Auto 1.4 % Normal 06/04/2025 [facility] Neutrophils NFr Bld Auto 65.3 % Normal 06/04/2025 [facility] Erythrocyte DistWidth Bld Auto 13.1 % Normal 06/04/2025 11 - 15 [facility] Monocytes NFr Bld Auto 7.8 % Normal 06/04/2025 [facility] Hgb Bld-mCnc 15.2 g/dL Normal 06/04/2025 11.7 - 15.5 [facility] T Eosinophil # Bld Auto 200.0 cells/uL Normal 06/04/2025 15 - 500 [facility] Basophils # Bld Auto 70.0 cells/uL Normal 06/04/2025 0 - 200 [facility] Bacteria Ur Cult SEE NOTE 06/04/2025 QU EST Appearance Ur TURBID Abnormal 06/04/2025 - [facility] Bilirub Ur Ql Strip NEGATIVE Normal 06/04/2025 - [facility] Hgb Ur Ql Strip 3+ Abnormal 06/04/2025 - [facility] Leukocyte esterase Ur Ql Strip NEGATIVE Normal 06/04/2025 - [facility] Glucose Ur Ql Strip NEGATIVE Normal 06/04/2025 - [facility] RBC #/area UrnS HPF > OR = 60 Abnormal 06/04/2025 - [facility] Prot Ur Ql Strip 1+ Abnormal 06/04/2025 - QU EST Sp Gr Ur Strip 1.034 Normal 06/04/2025 1.001 - 1.035 [facility] Squamous #/area UrnS HPF 10-20 Abnormal 06/04/2025 - [facility] Bacteria #/area UrnS HPF NONE SEEN Normal 06/04/2025 - [facility] Nitrite Ur Ql Strip NEGATIVE Normal 06/04/2025 - [facility] Hyaline Casts #/area UrnS LPF 10-20 Abnormal 06/04/2025 - [facility] Color Ur YELLOW Normal 06/04/2025 - [facility] pH Ur Strip 5.5 Normal 06/04/2025 5 - 8 [facility] WBC #/area UrnS HPF NONE SEEN Normal 06/04/2025 - [facility] Ketones Ur Ql Strip TRACE Abnormal 06/04/2025 - [facility] Magnesium SerPl-mCnc 2.5 mg/dL Normal 06/04/2025 1.5 - 2. 5 [facility] TSH SerPl-aCnc 2.05 mIU/L Normal 06/04/2025 0.4 - 4.[address] eGFRcr SerPlBld CKD-EPI 2020 65.0 mL/min/1.73m2 Normal 06/04/2025 - [facility] Sodium SerPl-sCnc 141.0 mmol/L Normal 06/04/2025 135 - 14 6 [facility] Potassium SerPl-sCnc 4.6 mmol/L Normal 06/04/2025 3.5 - 5 .3 [facility] Globulin Ser Calc-mCnc 2.7 g/dL (calc) Normal 06/04/2025 1.9 - 3.7 [facility] Albumin/Glob SerPl 1.7 (calc) Normal 06/04/2025 1 - 2.5 [facility] ALT SerPl-cCnc 54.0 U/L Above high normal 06/04/2025 6 - 29 [facility] Chloride SerPl-sCnc 105.0 mmol/L Normal 06/04/2025 98 - 1 10 [facility] Calcium SerPl-mCnc 9.0 mg/dL Normal 06/04/2025 8.6 - 10.4 [facility] Bilirub SerPl-mCnc 0.5 mg/dL Normal 06/04/2025 0.2 - 1.2 [facility] AST SerPl-cCnc 53.0 U/L Above high normal 06/04/2025 10 - 3 5 [facility] Albumin SerPl-mCnc 4.6 g/dL Normal 06/04/2025 3.6 - 5.1 [facility] Glucose SerPl-mCnc 84.0 mg/dL Normal 06/04/2025 65 - 99 [facility] Prot SerPl-mCnc 7.3 g/dL Normal 06/04/2025 6.1 - 8.[address] Creat SerPl-mCnc 1.02 mg/dL Normal 06/04/2025 0.5 - 1.03 [facility] CO2 SerPl-sCnc 27.0 mmol/L Normal 06/04/2025 20 - 32 [facility] EST BUN/Creat SerPl SEE NOTE: 06/04/2025 6 - [address] BUN SerPl-mCnc 14.0 mg/dL Normal 06/04/2025 7 - [address] ALP SerPl-cCnc 61.0 U/L Normal 06/04/2025 37 - 153 [facility] Bacteria Ur Cult SEE NOTE 02/16/2025 QU EST Bacteria Ur Cult SEE NOTE Abnormal 01/15/2025 QU EST History of Medication Use Medication Directions Dispensed Refills Start Date End Date Status Colace 50mg Capsule 05/11 5 active warfarin (COUMADIN) 1 MG tablet TAKE 1 TABLET BY MOUTH ONCE DAILY DIRECTED BY [facility] 4 active warfarin (COUMADIN) 5 MG tablet TAKE 1 TABLET BY MOUTH ONCE DAILY DIRECTED BY [facility] 4 active montelukast (SINGULAIR) 10 MG tablet Take 1 tablet (10 mg total) by mouth nightly. 4 active cephalexin 500 mg capsule take 1 capsule (500 mg) by oral route 4 times a day for 4 days 3 06/20/20 23 completed mirabegron (Myrbetriq) 50 mg ER tablet Take 1 tablet by mouth daily. 3 active warfarin (COUMADIN) 5 MG tablet TAKE 1 TABLET BY MOUTH DAILY DIRECTED BY THE [facility]ADIN CLINIC 3 active cephalexin 500 mg tablet take 1 tablet (500 mg) by oral route 4 times per day 2 10/07/19 23 completed ciprofloxacin 500 mg tablet take 1 tablet (500 mg) by oral route 2 times per day for 5 days. 2 05/15/20 22 completed Pepcid 20 mg tablet take 2 tablet (40 mg) by oral route once daily 1 active aspirin 81 mg chewable tablet chew 1 tablet (81 mg) by oral route once daily 1 05/15/20 22 completed levothyroxine 137 mcg tablet take 1 tablet (137 mcg) by oral route once daily 6 days/week 1 07/28/20 21 completed ascorbic acid (ascorbic acid) 500 MG tablet Take 500 mg by mouth daily. 0 active aspirin 81 MG chewable tablet Chew 81 mg daily. 0 active EPINEPHrine (EPIPEN 2-JOSE MIGUEL) 0.3 mg/0.3 mL IJ auto-injection Inject 0.3 mg into the shoulder, thigh, or buttocks once as needed for allergic reaction or anaphylaxis (may repeat if necessary). 0 active levothyroxine (Synthroid) 137 MCG tablet Take 137 mcg by mouth daily on an empty stomach. except Sundays 0 active zolpidem (AMBIEN) 10 MG tablet Take 10 mg by mouth nightly as needed for sleep. 0 active enoxaparin 100 mg/mL subcutaneous syringe PLEASE SEE ATTACHED FOR DETAILED DIRECTIONS 06/01/20 25 completed enoxaparin 120 mg/0.8 mL subcutaneous syringe INJECT THE CONTENTS OF 1 SYRINGE SUBCUTANEOUSLY ONCE DAILY DIRECTED BY THE COUMADIN CLINIC 06/01/20 25 completed estradiol 0.01% (0.1 mg/gram) vaginal cream INSERT 0.5 GRAMS VAGINALLY 3 TIMES A WEEK 05/29/20 24 completed neomycin 3.5 mg/g-polymyxin B 10,000 unit/g-dexameth 0.1 % eye oint 05/29/20 24 completed levofloxacin 500 mg tablet TAKE 1 TABLET EVERY 24 HOURS BY ORAL ROUTE DIRECTED FOR 7 DAYS. 02/04/20 24 completed Jublia 10 % topical solution with applicator 11/18/19 24 completed tobramycin 0.3 %-dexamethasone 0.1 % eye drops,suspension PUT 1 DROP INTO RIGHT EYE 4 TIMES A DAY FOR 7 DAYS 11/18/19 24 completed benzonatate 100 mg capsule TAKE 1 CAPSULE BY MOUTH THREE TIMES A DAY 05/25/20 23 completed epinephrine 0.3 mg/0.3 mL injection, auto-injector INJECT NEEDED FOR SEVERE ALLERGIC REACTION INCLUDING ANAPHYLAXIS DIRECTED AND THEN CALL 911 05/25/20 23 completed estradiol 0.01% (0.1 mg/gram) vaginal cream INSERT 0.5 GRAMS VAGINALLY 3 TIMES A WEEK 05/25/20 23 completed omeprazole 40 mg capsule,delayed release TAKE 1 CAPSULE BY MOUTH EVERY DAY 30 MINUTES BEFORE MORNING MEAL 05/25/20 23 completed warfarin 1 mg tablet TAKE 1-4 TABS BY MOUTH ONCE DAILY DIRECTED BY THE COUMADIN CLINIC. NOTE DOSE INCREASE 05/25/20 23 completed Nurtec ODT 75 mg disintegrating tablet active cyclobenzaprine 5 mg tablet active Macrobid 100 mg capsule active ciprofloxacin 250 mg tablet TAKE 1 TABLET BY MOUTH EVERY 12 HOURS FOR 5 DAYS active Colace active cyclobenzaprine 5 mg tablet TAKE 1 TABLET BY MOUTH THREE TIMES A DAY active Myrbetriq 50 mg tablet,extended release TAKE 1 TABLET BY MOUTH EVERY DAY active rosuvastatin 10 mg tablet TAKE 1 TABLET BY MOUTH EVERY DAY active trospium ER 60 mg capsule,extended release 24 hr TAKE 1 CAPSULE BY MOUTH EVERY DAY active trospium ER 60 mg capsule,extended release 24 hr TAKE 1 CAPSULE BY MOUTH EVERY DAY active warfarin 5 mg tablet TAKE 1 TABLET BY MOUTH DAILY DIRECTED BY THE COUMADIN CLINIC active acetaminophen (TYLENOL) 325 MG tablet Take 975 mg by mouth 3 times daily (every 8 hours) as needed for mild pain or moderate pain. active Ascorbic Acid (vitamin C) 1000 MG tablet Take by mouth. active calcium carbonate (OS-KRANTHI) 1250 (500 Ca) MG tablet Take 2,500 mg by mouth. active cyanocobalamin (VITAMIN B-12) 500 MCG tablet Take by mouth. active docusate sodium (Colace) 100 MG capsule Take by mouth. active famotidine (PEPCID) 40 MG tablet Take 40 mg by mouth. ac tive Fluocinolone Acetonide 0.01 % Oil INSTILL OTIC APPLY 4 DROPS TO EACH EAR 2 TIMES A WEEK AND NEEDED active levocetirizine (Xyzal Allergy 24HR) 5 MG tablet active levoFLOXacin (LEVAQUIN) 500 MG tablet TAKE 1 TABLET EVERY 24 HOURS BY ORAL ROUTE DIRECTED FOR 7 DAYS. active levothyroxine (SYNTHROID, LEVOTHROID) 112 MCG tablet Take 112 mcg by mouth. active levothyroxine (SYNTHROID, LEVOXYL) tablet 137 mcg Take 112 mcg by mouth every morning on an empty stomach. active mirabegron (MYRBETRIQ) 50 mg ER tablet Take 50 mg by mouth. acti ve MULTIPLE VITAMIN PO Take 1 tablet by mouth daily. active Multiple Vitamins-Minerals (One Daily Multivitamin Women) Tab Take by mouth. active rimegepant (Nurtec) 75 mg disintegrating tablet TAKE 1 TABLET VIA SUBLINGUAL ROUTE AT ONSET OF MIGRAINE. MAX DOSE 75 MG/24 HOURS active rosuvastatin (CRESTOR) 10 MG tablet Take 10 mg by mouth. acti ve terconazole (TERAZOL 7) 0.4 % vaginal cream INSERT 1 APPLICATORFUL VAGINALLY AT BEDTIME FOR 7 DAYS active vitamin C (ASCORBIC ACID) 500 MG tablet Take 1 tablet (500 mg total) by mouth daily. active zolpidem (AMBIEN) 5 MG tablet Take 2 tablets (10 mg total) by mouth every night at bedtime. active Allergies Allergen Reaction Severity Comment Documented Date Source Status SULFA ANTIBIOTICS HIVES 07/18/2015 [facility] active WHEAT SWELLING 07/18/2015 [facility] active ALMOND [facility] ERYTHROMYCIN NAUSEA ONLY Upset stomach [facility] PENICILLINS RASH/DERMATITIS [facility] SESAME SEEDS GI INTOLERANCE/HAYDE SEA/VOMITINGOTH ER (SEE COMMENTS) [facility] SHELLFISH CONTAINING PRODUCTS ENS_GRANBYCT SULFAC ENS_GRANBYCT TRIPLE DYE ANAPHYLAXIS allergic to contrast dye [facility] VANCOMYCIN HIVES [facility] AZITHROMYCIN ENS_PODCRCT ERYTHROMYCIN BASE ENS_AONECT PENICILLIN ENS_PODCRCT SESAME SEED ENS_AONECT SULFA ENS_PODCRCT SULFA (SULFONAMIDE ANTIBIOTICS) HIVES [facility]BY[facility] Problems Problem Status Onset Date Problem Type Date of Resolution Source Seasonal allergic rhinitis active ProblemAct [facility]BY[facility] Migraine with aura active 3 ProblemAct [facility] Microscopic hematuria active 2024-05-05 6 ProblemAct [facility] Disorder of lung active ProblemAct EN S_GRANBYCT Hyperlipidemia active ProblemAct ENS_ GRANBYCT History of malignant neoplasm of thyroid active ProblemAct ENS_GRAN BYCT History of heart valve recipient active ProblemAct ENS_GRANBYCT Fatigue active ProblemAct ENS_GRANB YCT Osteoarthritis active ProblemAct ENS_ GRANBYCT Varicose veins of bilateral lower limbs active ProblemAct E[facility]_GRANBYCT Disorder of vocal cord active ProblemAct [facility]_GRANBYCT History of thromboembolism active ProblemAct ENS_GRANBYCT Overactive urinary bladder active ProblemAct ENS_GRANBYCT Sleep rest pattern finding active ProblemAct E[facility]_GRANBYCT Hypothyroidism active ProblemAct ENS_ GRANBYCT Raynaud's disease active ProblemAct E NS_GRANBYCT Paralysis of larynx active ProblemAct ENS_GRANBYCT Obesity active 7 ProblemAct ENS_GRANBYCT Irritable bowel syndrome active ProblemAct ENS_GRANBYCT Headache active ProblemAct ENS_GRANB YCT Insomnia active ProblemAct ENS_GRANB YCT Ingrowing nail active 8 EncounterDiagnosisAct ENS_PODCRCT Tinea pedis active 2 ProblemAct [facility]_PODCRCT Tinea unguium, onychomycosis active 2 ProblemAct [facility]_POD[facility] Cellulitis of left toe, paronychia active 2023-12-03 9 ProblemAct [facility] Pain in left toe(s) active 2020-03-04 1 ProblemAct [facility] Onychogryphosis -Nail active 2020-03-04 1 ProblemAct [facility]_PODCRCT Pain in right toe(s) active 2020-03-04 1 ProblemAct [facility] Spondylarthrosis active 2015-09-04 2 ProblemAct [facility] Degenerative lumbar disc active 2 ProblemAct [facility] NSVT (nonsustained ventricular tachycardia) active 2018-02-01 7 ProblemAct [facility] Obesity (BMI 30-39.9) active 2018-02-01 7 ProblemAct [facility] Adenomatous colon polyp active 2015-07-04 5 ProblemAct [facility] Family history of malignant neoplasm of gastrointestinal tract active EncounterDiagnosisAct [facility]SF RAN Ascending aorta dilatation active 2018-04-04 6 ProblemAct [facility] Palpitations active 2018-02-01 7 ProblemAct [facility] Chronic low back pain active 2015-09-04 2 ProblemAct [facility] Dyspnea on exertion active 2018-02-01 7 ProblemAct [facility] Allergic conjunctivitis, bilateral active EncounterDiagnosisAct [facility] Gastroesophageal reflux disease, unspecified whether esophagitis present active EncounterDiagnosisAct [facility] Non-seasonal allergic rhinitis due to other allergic trigger active EncounterDiagnosisAct [facility] Patellofemoral stress syndrome active 2023-05-05 2 ProblemAct ENS_AONECT Sprain of lateral collateral ligament of knee active 2023-05-05 2 ProblemAct [facility]_AONECT Immunizations Vaccine Date Source Lot Number Status Prevnar 20 (PF) 0.5 mL intra muscular syringe 05/29/2024 E[facility]_NeurelisCT [id number] completed Prevnar 20 (PF) 0.5 mL intra muscular syringe 05/29/2024 E[facility] [id number] completed SARS-COV-2 (COVID-19) vaccin e, mRNA, spike protein, LNP, preservative free, 50 mcg/0.5 mL dose 12/05/2023 E[facility] [id number] completed SARS-COV-2 (COVID-19) vaccin e, mRNA, spike protein, LNP, preservative free, 50 mcg/0.5 mL dose 12/05/2023 [facility]_GRANBYCT [id number] completed Influenza, injectable, Madin Reema Canine Kidney, preservative free, quadrivalent 08/29/2023 E[facility]_GR[facility]BY[facility] [id number] completed Influenza, injectable, Madin Reema Canine Kidney, preservative free, quadrivalent 08/29/2023 E[facility]_GR[facility]BYCT [id number] completed SARS-COV-2 (COVID-19) vaccin e, mRNA, spike protein, LNP, bivalent, preservative free, 50 mcg/0.5 mL dose 09/29/2022 E[facility]_GRANBYCT [id number] completed SARS-COV-2 (COVID-19) vaccin e, mRNA, spike protein, LNP, bivalent, preservative free, 50 mcg/0.5 mL dose 09/29/2022 [facility] [id number] completed Influenza, injectable, quadr ivalent, preservative free 07/23/2022 [facility] [id number] completed Influenza, injectable, quadr ivalent, preservative free 07/23/2022 E[facility]_GRANBYCT [id number] completed SARS-COV-2 (COVID-19) vaccin e, mRNA, spike protein, LNP, preservative free, 100 mcg/0.5mL dose 04/28/2022 E[facility]_GRANBYCT [id number] completed SARS-COV-2 (COVID-19) vaccin e, mRNA, spike protein, LNP, preservative free, 100 mcg/0.5mL dose 04/28/2022 [facility]BY[facility] [id number] completed zoster vaccine subunit 11/18/2021 [facility] [id number] completed zoster vaccine subunit 11/18/2021 E[facility]_GR[facility]BY[facility] [id number] completed Influenza, injectable, quadr ivalent, preservative free 08/31/2021 E[facility]_GR[facility] [id number] completed Influenza, injectable, quadr ivalent, preservative free 08/31/2021 [facility] [id number] completed SARS-COV-2 (COVID-19) vaccin e, mRNA, spike protein, LNP, preservative free, 100 mcg/0.5mL dose 08/31/2021 [facility] [id number] completed SARS-COV-2 (COVID-19) vaccin e, mRNA, spike protein, LNP, preservative free, 100 mcg/0.5mL dose 08/31/2021 [facility] [id number] completed zoster vaccine subunit 04/18/2021 [facility] completed zoster vaccine subunit 04/18/2021 [facility]BY[facility] completed SARS-COV-2 (COVID-19) vaccin e, mRNA, spike protein, LNP, preservative free, 30 mcg/0.3mL dose 01/20/2021 [facility] [id number] completed SARS-COV-2 (COVID-19) vaccin e, mRNA, spike protein, LNP, preservative free, 30 mcg/0.3mL dose 01/20/2021 [facility] [id number] completed SARS-COV-2 (COVID-19) vaccin e, mRNA, spike protein, LNP, preservative free, 30 mcg/0.3mL dose 12/30/2020 [facility] [id number] completed SARS-COV-2 (COVID-19) vaccin e, mRNA, spike protein, LNP, preservative free, 30 mcg/0.3mL dose 12/30/2020 [facility] [id number] completed influenza, injectable, quadr ivalent, contains preservative 07/20/2020 [facility] [id number] completed influenza, injectable, quadr ivalent, contains preservative 07/20/2020 [facility] [id number] completed Influenza, injectable, Madin Reema Canine Kidney, preservative free, quadrivalent 07/23/2019 [facility] [id number] completed Influenza, injectable, Madin [place] Canine Kidney, preservative free, quadrivalent 07/23/2019 E[facility]_GR[facility]BY[facility] [id number] completed Influenza, injectable, Madin Reema Canine Kidney, preservative free, quadrivalent 08/08/2017 E[facility] [id number] completed Influenza, injectable, Madin [place] Canine Kidney, preservative free, quadrivalent 08/08/2017 [facility] [id number] completed tetanus toxoid, reduced diph theria toxoid, and acellular pertussis vaccine, adsorbed 01/23/2016 ENS_DIANECT [id number] completed tetanus toxoid, reduced diph theria toxoid, and acellular pertussis vaccine, adsorbed 01/23/2016 ENS_DIANECT [id number] completed Encounters Encounter Type Encounter Reason Primary Diagnosis Location Date Ambulatory [facility] 04/03/2025 Ambulatory [facility] 03/07/2025 Ambulatory [facility] 02/16/2025 Ambulatory [facility] 01[facility]27/2025 Ambulatory [facility] 12[facility]23/2024 Ambulatory [facility] 10/20/2024 Ambulatory [facility] 09/28/2024 Ambulatory [facility] 09[facility]22/2024 Ambulatory [facility] 09/22/2024 Ambulatory [facility] 09/11/2024 Ambulatory [facility] 05/01/2024 Ambulatory [facility] 03/31/2024 Ambulatory [facility] 02[facility]24/2024 Ambulatory [facility] 02/04/2024 Ambulatory [facility] 02/04/2024 Ambulatory [facility] 02/04/2024 Ambulatory Allergy Testing [facility] 12/29/2023 Ambulatory [facility] 12/02/2023 Amb[facility] [place] 08/06/2023 Ambulatory Family history of malignant neoplasm of digestive organs Family history of malignant neoplasm of digestive organs [facility] 07/19/2023 Ambulatory [facility] 06/10/2023 Ambulatory [facility] 06[facility]10/2023 Ambulatory [facility] 05/25/2023 Ambulatory [facility] 05/25/2023 Ambulatory [facility] 05/20/2023 Ambulatory [facility] 09/18/2022 Care Team Organization Name Specialty Phone Email Start Date End [facility] 03/07/2025 04/05/2025 [facility]2025 [facility] 02/07/2025 [facility] 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 03/06/2023 [facility] 09/18/202209/18 [facility] 09/18/2022 [facility] Aleida Cotter NP Primary Care 08/11/2022 [facility] Aleida Cotter NP Primary Care
--- OUTSIDE RECORDS SUMMARY | 2025-06-07 10:04 | XMS_ITS | Encounter Summary ---
Author Organization [facility] Address [address] [place] [id number] Phone Care Team Providers Care Cooper Helper Name Role Phone Aleida Cotter LOT TECHNICIAN Primary Care Provider + Encounter Details Date Type Department Care Team (Late st Contact Info) Description 03/26/2022 Procedure [facility] Admitting Dept Virtual Department [address] [place] [address] Social History Tobacco Use Types Packs/Day Years Used Date Smoking Tobacco: Never Smokeless Tobacco: Never Alcohol Use Standard Drinks/Week Comments Yes 1 (1 standard drink = 0.6 oz pur e alcohol) Comments No Sex and Gender Information Value Date Recorded Sex Assigned at Not on file Legal Sex Female 3:50 PM EDT Gender Identity Not on file Sexual Orientation Not on file documented as of this encounter Plan of Treatment Not on file documented as of this encounter Visit Diagnoses Not on filedocumented in this encounter Care Teams Cooper Helper Relationship Specialty Start Date End Date Aleida Cotter NP [address] [place] [address] PCP - General Family Medicine 03/26/22 documented as of this encounter Additional Source Comments The information contained in this document represents components of the legal health record. It is not the complete legal health record.[facility]
--- OUTSIDE RECORDS SUMMARY | 2025-06-07 10:05 | XMS_ITS | Clinical Summary ---
Author Organization [facility] Address [address] [place], [place] [id number] Phone Care Team Providers Care Food And Nutrition Services Supervisor Name Role Phone Aleida Cotter DRY PRESS OPERATOR HELPER Primary Care Provider + Allergies Active Allergy Reactions Criticality Noted Date Comments Stacy 10/05/2015 Animal Dander Itching,Photosensiti v ity Low 07/18/2015 Azithromycin 03/25/2022 Erythromycin 03/25/2022 Upset stomach Gent Marcie-Brlnt Grn-Proflav Anaphylaxis High 08/29/2020 allergic to contrast dye Other 03/25/2022 Food allergies-shrimp; lobster; almonds; sesame;wheat Penicillins Hives 03/25/2022 Seeds 12/25/2022 Sesame Oil Nausea And Vomiting,GI Upset Low 07/18/2015 Patient does not know reaction, just that she has an allergy to sesame Shellfish Containing Products Hives,Swelling High 07/18/2015 Soy 12/25/2022 Sulfa (Sulfonamide Antibiotics) Hives 03/25/2022 Sulfamethoxazole-Trimet hoprim 12/25/2022 Vancomycin Rash Low 03/25/2022 Wheat Anaphylaxis,Nausea And Vomiting,Shortness Of Breath,Swelling High 07/18/2015 Medications Lactobacillus rhamnosus GG (CULTURELLE ORAL) Take 1 capsule by mouth daily. Active omeprazole (PRILOSEC) 40 MG capsule Take 40 mg by mouth daily. Active warfarin (COUMADIN) 5 MG tablet Take 5 mg by mouth daily. Dose varies Active psyllium seed, with sugar, (FIBER ORAL) Take 1 tablet by mouth daily. Active zolpidem (AMBIEN) 10 mg tablet Take 10 mg by mouth nightly at bedtime as needed for sleep. Active ascorbic acid (VITAMIN C ORAL) Take 1 tablet by mouth daily. Active cyanocobalamin, vitamin B-12, (VITAMIN B12 ORAL) Take 1 tablet by mouth daily. Active multivitamin per tablet Take 1 tablet by mouth daily. Active levothyroxine (SYNTHROID, LEVOTHROID) 112 MCG tablet Take 112 mcg by mouth every morning. Active CALCIUM ORAL Take 1 tablet by mouth daily. Active EPINEPHrine 0.3 mg/0.3 mL auto-injector INJECT NEEDED FOR SEVERE ALLERGIC REACTION INCLUDING ANAPHYLAXIS DIRECTED AND THEN CALL 911 12/18/19 Active MYRBETRIQ 50 mg Tb24 Take 50 mg by mouth daily. 11/22/19 23 Active rosuvastatin (CRESTOR) 10 MG tablet Take 10 mg by mouth daily. 11/09/19 23 Active tobramycin-dexameth asone (TOBRADEX) ophthalmic suspension PLACE 1 DROP INTO LEFT EYE 4 TIMES A DAY FOR 10 DAYS 12/19/19 Active trospium (SANCTURA XR) 60 mg Cp24 Take by mouth. Active famotidine (PEPCID) 10 MG tablet Take 10 mg by mouth nightly at bedtime. Active acetaminophen (TYLENOL) 325 mg tablet Take 975 mg by mouth every 8 (eight) hours as needed. Active levocetirizine dihydrochloride (XYZAL ORAL) Take by mouth. 02/01/20 24 Active triamcinolone (NASACORT AQ) 55 mcg/actuation nasal inhaler 1 spray by Nasal route daily. Active rimegepant (NURTEC ODT) 75 mg tablet Take 75 mg by mouth once as needed. Active BENEFIBER, GUAR GUM, ORAL Take by mouth. Activ e cholecalciferol, vitamin D3, (VITAMIN D3 ORAL) Take by mouth. Active famotidine (PEPCID) 40 MG tablet Take 40 mg by mouth nightly at bedtime. Active levocetirizine (XYZAL) 5 MG tablet Take 5 mg by mouth every evening. Active fluocinolone acetonide (DERMOTIC) 0.01 % Drop as needed. Active enoxaparin (LOVENOX) 100 mg/mL Syrg subcutaneous syringe 05/11/20 25 Active Encounters Date Type Department Care Team Description 05/31/2025 9:15 AM EDT - 05/31/2025 9:30 AM EDT Surgery [facility] Admitting Dept Virtual Department [address] [place] [id number] Brisa Salinas MD COLONOSCOPY 05/31/2025 9:12 AM EDT Anesthesia Event [facility] Admitting Dept Virtual Department [address] [place] [address] [id number] Tisha Mahmood MD 05/31/2025 8:02 AM EDT - 05/31/2025 10:06 AM EDT Hospital Encounter [facility] Admitting [facility] Virtual Department [address] [place] [id number] Brisa Salinas MD Discharge Disposition: Home or Self Care 05/31/2025 Procedure Pass [facility] Admitting Dept Virtual Department [address] [place] [id number] 05/24/2025 11:15 AM EDT Pre-Admission Testing Pre Procedure Evaluation [address] [place] [id number] Brisa Salinas MD 05/09/2025 10:45 AM EDT Pre-Admission Testing Pre Procedure Evaluation [address] [place] [id number] Brisa Salinas MD from Last 3 Months Social History Tobacco Use Types Packs/Day Years Used Date Smoking Tobacco: Never Smokeless Tobacco: Never Alcohol Use Standard Drinks/Week Comments Yes 2 (1 standard drink = 0.6 oz pur [...] as food, clothing, or medical care? No 05/31/2025 In the past 12 months have y ou been in a relationship with a person who hurts, threatens, or tries to control you? No 05/31/2025 Are you denied basic needs s uch as food, clothing, or medical care? No 05/31/2025 In the past 12 months have y ou been in a relationship with a person who hurts, threatens, or tries to control you? No 05/31/2025 Comments No Sex and Gender Information Value Date Recorded Sex Assigned at Not on file Legal Sex Female 3:50 PM EDT Gender Identity Not on file Sexual Orientation Not on file Last Filed Vital Signs Vital Sign Reading Time Taken Comments Blood Pressure 126/82 05/31/2025 9:54 AM EDT Pulse 81 05/31/2025 9:54 AM EDT Temperature 36 C (96.8 F) 05/31/2025 9:39 AM EDT Respiratory Rate 15 05/31/2025 9:54 AM EDT Oxygen Saturation 98% 05/31/2025 9:54 AM EDT Inhaled Oxygen Concentration - - Weight 91.6 kg (202 lb) 05/31/2025 8:43 AM EDT Height 165.1 cm (5' 5 ) 05/31/2025 8:43 AM EDT Body Mass Index 33.61 05/31/2025 8:43 AM EDT Plan of Treatment Health Maintenance Due Date Last Done Comments Adult Td,Tdap Booster 1970 LIPID PANEL 1969 TSH LEVEL 1969 DEPRESSION SCREENING 1981 HEPATITIS C SCREENING 1987 HIV ONE-TIME SCREENING (18-6 5 YEARS) 1987 PAP SMEAR 1990 COLOGUARD 2014 FIT TEST 2014 FOBT 2014 SIGMOIDOSCOPY 2014 VIRTUAL COLONOSCOPY 2014 ZOSTER VACCINES (1 of 2) 2019 PNEUMOCOCCAL VACCINES (50+ years) (2 of 2 - PCV) 08/26/2021 08/26/2020 INFLUENZA VACCINE (#1) 2025 06/25/2024 MAMMOGRAM 05/29/2026 05/29/2024 SCREENING FOR DIABETES 12/14/2026 12/15/2023 COLONOSCOPY 05/31/2035 05/31/2025, 03/26/2022 COLORECTAL CANCER SCREENING 05/31/2035 COVID-19 VACCINE Completed 06/25/2024 SMOKING STATUS SCREENING (On ce After 26 Yrs) Completed 05/31/2025 HEPATITIS A VACCINES Aged Out No long er eligible based on patient's age to complete this topic HIB VACCINES Aged Out No longer eligi ble based on patient's age to complete this topic MENINGOCOCCAL VACCINES (ACWY) Aged Out No longer eligible based on patient's age to complete this topic MENINGOCOCCAL VACCINES (B) Aged Out N o longer eligible based on patient's age to complete this topic Medical Devices Implanted Type Area Currency Examiner Device Identifier Shelf Expiration Date Model / Serial / Lot Aortic Valve Replacement Clip Hemostasis 16mm /[id number] - [id number] Implanted:Qty: 1 on 05/31/2025 by Brisa Salinas MD at [facility] [employer] [facility] [id number] / / Procedures Procedure Name Priority Date/Time Associated Diagnosis Comments NM COLSC FLX W/RMVL OF TUMOR POLYP LESION SNARE TQ 05/31/2025 9:12 AM EDT FH: colon cancer Special Needs Mechanical valveLovenox/warfarin NM COLONOSCOPY W/BIOPSY SINGLE/MULTIPLE 05/31/2025 9:12 AM EDT FH: colon cancer Special Needs Mechanical valveLovenox/warfarin NM COLONOSCOPY FLX DX W/COLLJ SPEC WHEN PFRMD 05/31/2025 9:12 AM EDT FH: colon cancer Special Needs Mechanical valveLovenox/warfarin ENDOSCOPY, COLON 05/31/2025 9:11 AM EDT ANATOMIC PATHOLOGY Routine 05/31/2025 12 :00 AM EDT from Last 3 Months Results * ENDOSCOPY, COLON (05/31/2025 9:11 AM EDT) Narrative Transcriptions Brisa Salinas MD - 05/31/2025 9:11 AM EDT [facility] Patient Name: Malia Robert Attending MD:: BRISA SALINAS MD, Procedure Date: 05/31/2025 9:11 AM Date of : 1970 Age: 55 Admit Type: Outpatient Gender: Female Room: [place] [address] Referring MD: Aleida Ceja Exam Type: Colonoscopy Indications: Colon cancer screening in patient at increasedrisk: Colorectal cancer in mother, Colon cancer screeningin patient at increased risk: Colorectal cancer in father, Hematochezia Medications: Monitored Anesthesia Care Procedure: Informed consent was obtained from the patientafter discussion of the indications, limitations, alternatives, benefits, and risks of the procedure. Risks specifically discussed include but are not limited to medication reactions, missed lesions, bleeding, perforation, or the need for emergent surgery. Throughout the procedure, the patient's blood pressure, pulse, end-tidal CO2, and oxygensaturations were monitored continuously. The Olympus adult variable colonoscope [id number] #3 was introduced through the anus and advanced to the cecum, identified by the appendiceal orifice, ileocecal valve and palpation. The colonoscopy was somewhat difficult due to significant looping. Successful completion of the procedure was aided by applying abdominal pressure. The patient toleratedthe procedure fairly well. Complications: No immediate complications. Estimated blood loss: Minimal. Findings: Hemorrhoids were found on perianal exam. Non-bleeding friable internal hemorrhoids werefound during retroflexion. The hemorrhoids were large. Multiple diverticula were found in the sigmoidcolon and descending colon. A 5 mm polyp was found at 85 cm proximal to theanus. The polyp was sessile. The polyp was removed with a cold snare. Resection and retrieval were complete.To prevent bleeding after the polypectomy, onehemostatic clip was successfully placed (MR conditional).There was no bleeding at the end of the procedure.Estimated blood loss was minimal. Retroflexion in the right colon was performed. The exam was otherwise without abnormality ondirect and retroflexion views. Impression: - Hemorrhoids found on perianal exam. - Non-bleeding internal hemorrhoids. - Diverticulosis in the sigmoid colon and in the descending colon. - One 5 mm polyp at 85 cm proximal to the anus, removed with a cold snare. Resected and retrieved. Clip (MR conditional) was placed. - The examination was otherwise normal on directand retroflexion views. Recommendation: - Due to placement of endoscopic clip(s), avoidance of MRI for aminimum of 30 days is recommended. - Consider hemorrhoidal band ligation. - I will send results of your biopsy to you and your referringphysician or provider. If you do not receive notification within 3 weeks,please call our office. - Resume Coumadin (warfarin) today and Lovenox (enoxaparin) today at prior doses. - Repeat colonoscopy in 5 years for surveillance based on pathology results. BRISA SALINAS MD 05/31/2025 9:39:59 AM This report has been signed electronically. Number of Addenda: 0 Note Initiated On: 05/31/2025 9:11 AM Procedure Code(s): --- Professional --- 81870, Colonoscopy, flexible; with removal of tumor(s), polyp(s), or other lesion(s) by snare technique --- Technical --- 22877, Colonoscopy, flexible; with removal of tumor(s), polyp(s), or other lesion(s) by snare technique Diagnosis Code(s): --- Professional --- K64.8, Other hemorrhoids D12.6, Benign neoplasm of colon, unspecified Z80.0, Family history of malignant neoplasm of digestive organs K92.1, Melena (includes Hematochezia) K57.30, Diverticulosis of large intestine without perforation or abscess without bleeding --- Technical --- K64.8, Other hemorrhoids D12.6, Benign neoplasm of colon, unspecified Z80.0, Family history of malignant neoplasm of digestive organs K92.1, Melena (includes Hematochezia) K57.30, Diverticulosis of large intestine without perforation or abscess without bleeding CPT copyright 2021 [employer]. All rights reserved. The codes documented in this report are preliminary and upon tow mate reviewmay be revised to meet current compliance requirements. Procedure Date: 05/31/2025 9:11:[address] [place] [id number] us Aleida Cotter NP GI PROCEDURE ORDERABLES Final Result * Anatomic Pathology (05/31/2025 12:00 AM EDT) 05/31/2025 05/31/2025 11: 19 AM EDT Narrative SEE NARRATIVE - 06/01/2025 2:03 PM EDT [address] [address] Fleecer: Antony Davis MD Surgical Pathology Report FINAL PATHOLOGIC DIAGNOSIS: COLON POLYP AT 85CM: Adenomatous polyp. Electronically Signed Out By Antony Davis MD By his/her signature above, the pathologist listed as making the Final Diagnosis certifies that he/she has personally reviewed this case and confirmed or corrected the diagnosis. CLINICAL HISTORY Family history of colon cancer [Z80.0]. Cancer in the father. Hematochezia. SPECIMENS SUBMITTED: A: COLON AT 85CM, POLYP GROSS DESCRIPTION COLON AT 85CM, POLYP: Received in formalin is a 0.9 x 0.7 x 0.1 cm irregular portion of kenyon-pink mucosal tissue which exhibits a 0.4 x 0.3 x 0.2 cm erythematous polyp. The specimen is trisected and entirely submitted in a single cassette labeled A1. Grossed by: DORA Serrano, NEELIMA(ASCP) [id number] 05/31/2025 Grossing Staff: [id number] Patient Name: MALIA JONES : 1970 (Age: 55) Sex: F Institution: [facility] Location: [facility] Date of Operation: 05/31/2025 Date of Reported: 06/01/2025 14:03 Results To: Brisa Cotter DRY PRESS OPERATOR HELPER us Brisa Salinas MD PATHOLOGY ORDERABLES Final Res ult SEE NARRATIVE from Last 3 Months Insurance [facility] OUT OF STATE PPO [facility] OUT OF [facility] PPO [employer] OUT OF STATE P[place] [id number] [facility] OUT [facility]PO [facility] OUT OF [place] [address] [place] [address] OUT OF [facility] [address] [place] [address] PPO [employer] [place] [address] [employer] OUT OF STATE PPO Care Teams Food And Nutrition Services Supervisor Relationship Specialty Start Date End Date Aleida Cotter NP [address] [place] [address] PCP - General Family Medicine 03/26/22 Additional Source Comments The information contained in this document represents components of the legal health record. It is not the complete legal health record.[facility]
--- OUTSIDE RECORDS SUMMARY | 2025-06-07 10:05 | XMS_ITS | Encounter Summary ---
Author Organization [facility] Address [address] [address] Phone Care Team Providers Care Hemmer Lockstitch Name Role Phone Aleida Cotter [employer] Primary Care Provider + Encounter Details Date Type Department Care Team (Late st Contact Info) Description 05/31/2025 Procedure Pass [facility] Endoscopy Admitting Dept Virtual Department [address] [place] [address] Social History Tobacco Use Types Packs/Day Years [...] on filedocumented in this encounter Care Teams Hemmer Lockstitch Relationship Specialty Start Date End Date Aleida Cotter NP [address] [place] [phone] PCP - General Family Medicine 03/26/22 documented as of this encounter Additional Source Comments The information contained in this document represents components of the legal health record. It is not the complete legal health record.[facility]
== END 2025-06-07 10:10 | disposition home or self-care (01) ==
LOC: HO.RHES 09:22
PROVIDERS: Visit Provider Internal Medicine Rheumatology
DX: M25.571 Pain in right ankle and joints of right foot (principal); M35.9 Systemic involvement of connective tissue, unspecified
CPT/HCPCS: 99214